=== PATIENT | male | born 1960 | race African-American/Black ===

== ENCOUNTER 2017-01-04 08:05 | Emergency (ER) | payer MEDICARE, OTHER ==
[~2017-01-04] VITALS: Ht 185.4 cm; Wt 95.0 kg
[2017-01-04] MEDS ORDERED: FAMOTIDINE 20MG/2ML VIAL IV ONE (08:45)
[2017-01-04 08:51] LABS: HEMATOCRIT. 49.4 % (42.0-52.0); HEMOGLOBIN. 17.5 g/dL (14.0-18.0); MEAN CORPUSCULAR HEMOGLOBIN 30.9 pg (28.0-32.0); RED BLOOD CELL COUNT 5.68 mill/uL (4.7-6.1); RED CELL DISTRIBUTION WIDTH 13.2 % (11.6-14.6)
[2017-01-04 09:08] LABS: CARBON DIOXIDE 19 mEq/L (21-32); CHLORIDE 78 mEq/L (98-107); TROPONIN I < 0.02 ng/mL (0.00-0.04)
[2017-01-04 09:25] LABS: PARTIAL THROMBOPLASTIN TIME 23.8 sec (23.4-31.0); PROTHROMBIN TIME 10.2 sec (9.4-11.6)
[2017-01-04] MEDS ORDERED: TRAMADOL 50MG TABLET PO ONE (10:15)
[2017-01-04 10:22] LABS: PLATELET ESTIMATE NORMAL
[2017-01-04 10:23] LABS: MEAN PLATELET VOLUME 8.4 fl (7.4-10.4); PLATELET 217 x1000/uL (130-400)
[2017-01-04] MEDS ORDERED: HYDROCODONE/APAP 7.5/325MG 1 TAB TABLET PO ONE (12:45)
[2017-01-04] MEDS ORDERED: SODIUM CHLORIDE 0.9% 1,000 ML IV ONE (14:31)
[2017-01-04 14:38] VITALS: BP 139/87
== END 2017-01-04 14:37 | disposition short-term general hospital (02) ==
LOC: ER 08:24
DX: E87.0 Hyperosmolality and hypernatremia (principal); R56.9 Unspecified convulsions; M54.9 Dorsalgia, unspecified; I10 Essential (primary) hypertension; F17.200 Nicotine dependence, unspecified, uncomplicated
CPT/HCPCS: 36415; 70450; 71010; 72070; 80053; 83690; 84484; 85025; 85610; 85730; 93005; 96361; 96374; 99285; J3490; J7030; Z7610